=== PATIENT | female | born 1950 | race Two or more races ===

== ENCOUNTER 2018-03-20 06:54 | Emergency (ER) | payer OTHER ==
[~2018-03-20] VITALS: Ht 152.4 cm; Wt 68.0 kg
[~2018-03-20 06:54] MED LIST: AMBIEN CR12.5 MG/BL PO; BENTYL10 MG/ML IM; KLONOPIN0.125 MG/T PO; LITHIUM CARBON450 MG PO; NEXIUM40 MG/PACK PO; PROTONIX40 MG PO; SEROQUEL25 MG PO; ZANTAC150 MG PO
[2018-03-20] MEDS ORDERED: PREVACID30 M1 PO (07:28)
== END 2018-03-20 13:30 | disposition home or self-care (01) ==
LOC: ER 06:54
DX: K57.30 Diverticulosis of large intestine without perforation or abscess without bleeding (principal); R10.84 Generalized abdominal pain

== ENCOUNTER 2018-07-01 10:51 | Outpatient (CLI) | payer OTHER | END 2018-07-01 10:59 | disposition home or self-care (01) | LOC: RAD 501 10:51 | DX: R10.84 Generalized abdominal pain (principal) ==

== ENCOUNTER → 2018-07-01 | Emergency (ER) | payer OTHER ==
[~2018-07-01] MED LIST changes: +PREVACID30 M1 PO
== END | disposition left against medical advice (07) ==
LOC: ER 09:56
DX: Z53.20 Procedure and treatment not carried out because of patient's decision for unspecified reasons (principal)

== ENCOUNTER 2018-07-04 07:11 | Outpatient (CLI) | payer OTHER | END 2018-07-04 07:24 | disposition home or self-care (01) | LOC: TOM 07:11 | DX: R10.84 Generalized abdominal pain (principal); K57.92 Diverticulitis of intestine, part unspecified, without perforation or abscess without bleeding | CPT/HCPCS: 74178; Q9965 ==

== ENCOUNTER 2022-10-16 07:17 | Outpatient (CLI) | payer OTHER | END 2022-10-16 07:27 | disposition home or self-care (01) | LOC: TOM 07:17 | DX: K59.09 Other constipation (principal); R10.84 Generalized abdominal pain ==